=== PATIENT | male | born 2000 | race Caucasian/White ===

== ENCOUNTER 2020-02-16 10:46 | Outpatient (CLI) | payer BC | END 2020-02-16 10:47 | disposition home or self-care (01) | LOC: CTENTCT 10:46 | PROVIDERS: ATTEND Otolaryngology Plastic Surgery within the Head & Neck | DX: J34.2 Deviated nasal septum (principal) | CPT/HCPCS: 70486 ==

== ENCOUNTER 2020-04-11 06:51 | Day surgery (SDC) | payer BC ==
[2020-04-10 10:35] VITALS: BMI 22.5
[2020-04-11] MEDS ORDERED: AFRIN NASAL MIST 15 ML BOT ONE ×2 (07:45→07:57)
[2020-04-11] MEDS ORDERED: XYLOCAINE 2%-EPI 1:100,000 20 ML VIAL ONE (07:56)
[2020-04-11] MEDS ORDERED: Bacitracin Zinc Ointment 30 gm TUBE ONE (07:57)
[2020-04-11] MEDS ORDERED: Fentanyl 100 MCG/2 ML VIAL ONE (08:10)
[2020-04-11] MEDS ORDERED: Meperidine HCl/PF 25 MG/ML VIAL ONE (08:10)
[2020-04-11] MEDS ORDERED: Famotidine/PF 20 mg/2ml Vial ONE (08:10)
[2020-04-11] MEDS ORDERED: Metoclopramide HCl 10 MG/2 ML VIAL ONE (09:22)
[2020-04-11] MEDS ORDERED: Ondansetron PF 4 MG/2 ML Vial ONE (09:22)
[2020-04-11] MEDS ORDERED: Succinylcholine 200 MG/10 ml SYRINGE FS ONE (09:22)
[2020-04-11] MEDS ORDERED: PROPOFOL 200 MG/20 ML VIAL ONE (09:22)
[2020-04-11] MEDS ORDERED: Lidocaine 1% PF 5 ML VIAL ONE (09:22)
[2020-04-11] MEDS ORDERED: Dexamethasone 20 MG/5 ML VIAL ONE (09:22)
[2020-04-11] MEDS ORDERED: Hydrocodone-Acetamin 15 ML UDCUP ONE (10:17)
--- NOTE | 2020-04-12 12:03 | OP ---
DATE OF PROCEDURE: 04/11/2020 PREOPERATIVE DIAGNOSES: 1. Chronic rhinosinusitis. 2. Nasal polyposis. 3. Nasal septal deviation. 4. Bilateral inferior turbinate hypertrophy. 5. Nasal obstruction. POSTOPERATIVE DIAGNOSES: 1. Chronic rhinosinusitis. 2. Nasal polyposis. 3. Nasal septal deviation. 4. Bilateral inferior turbinate hypertrophy. 5. Nasal obstruction. PROCEDURE PERFORMED: 1. Bilateral endoscopic sinus surgery, total ethmoidectomies with frontal sinus exploration and removal of tissue, bilateral. 2. Bilateral endoscopic sinus surgery, maxillary antrostomies. 3. Bilateral endoscopic sinus surgery, sphenoidotomies. 4. Nasal septoplasty. 5. Bilateral inferior turbinate submucosal resection. ESTIMATED BLOOD LOSS: 50 mL. COMPLICATIONS: None. ANESTHESIA: GETA. PROCEDURE IN DETAIL: Patient was taken to the operating room and placed supine on the table. General endotracheal anesthesia was obtained by the anesthesia staff. Then 1% lidocaine with 1:100,000 epinephrine was injected into the nasal septum as well as the inferior turbinates. The patient was prepped and draped in standard surgical fashion. The Afrin pledgets were then removed. A [place] incision was made on the left nasal septum. Submucoperichondrial dissection was performed bilaterally of the deviated portions of the septum, which included the maxillary crest and the crest deviation, as well as the mid portion of the septum. Cartilage and bony deviation was removed, leaving a generous caudal and dorsal strut. Any straight pieces of cartilage were then placed within the cartilage press, pressed, straightened, and then placed between the mucoperichondrial flaps, which were then closed using a 4-0 gut stitch. The inferior turbinates were then punctured with the submucosal Coblation machine, and 3 separate coblations were delivered to the anterior inferior portion of the inferior turbinates. Following this, the nasal cavity was irrigated. All debris was removed. An orogastric tube was placed. Gastric contents and Alcar[place] splints were then placed in the nasal cavity and sutured with a 3-0 silk stitch. Following this, a 0-degree microdebrider was advanced into the middle meatus. The middle turbinates were gently medialized using a [place] elevator bilaterally. Following this, the uncinate process was visualized and was anteriorly fractured using a ball-ended probe bilaterally. The uncinate process was then removed using the 0-degree microdebrider and a 40-degree microdebrider and up-biting [place]akesley forceps bilaterally. Following this, the natural maxillary sinus ostia was palpated and identified using a ball-ended probe bilaterally. The maxillary sinus ostia were then widened using a 40-degree microdebrider blade and straight [place]akes[place] forceps bilaterally. Following this, the ethmoidal bulla was identified and was punctured on its medial and inferior aspect using the 0-degree microdebrider bilaterally. Following this, the ethmoidal bulla was removed along with the anterior ethmoidal cells using the 40-degree microdebrider and a 0-degree microdebrider blade bilaterally. Following this, the grand lamella was identified and was punctured into the posterior ethmoidal cells bilaterally. Keeping the cribriform plate in view, the ethmoidal cells were opened from a posterior to anterior direction using a 0-degree microdebrider, 40-degree microdebrider and the up-biting [place] forceps bilaterally. Following this, the approach to the sphenoid sinus was taken through the previous ethmoidectomies, where the anterior wall of the sphenoid sinus was identified. The 0-degree microdebrider was used to puncture the anterior wall of the sphenoid sinus and create a sphenoidotomy bilaterally. The sphenoidotomy was widened in a medial and inferior direction using the 0-degree microdebrider bilaterally. Following this, a 45-degree endoscope was used to identify the frontal sinus ostia and frontal recess area. There were nasal polyps obstructing this area along with purulent debris. This was removed using the up-biting Blakesley forceps and a 40-degree microdebrider blade. The frontal sinus ostia were punctured and widened using a 40-degree microdebrider bilaterally and polypoid tissue was removed from the floor the frontal sinus bilaterally. Following this, the nasal cavity was irrigated. Nasal pore packing was placed into the middle meatus. Alcaraz splints were placed and secured. The patient tolerated the procedure well. Job ID: [id number]
== END 2020-04-11 11:00 | disposition home or self-care (01) ==
LOC: SDC 06:51
PROVIDERS: ATTEND Otolaryngology Plastic Surgery within the Head & Neck
PROC: 09BT8ZZ Excision of Left Frontal Sinus, Via Natural or Artificial Opening Endoscopic (ICD-10-PCS; principal; 2020-04-11)
PROC: 09TV8ZZ Resection of Left Ethmoid Sinus, Via Natural or Artificial Opening Endoscopic (ICD-10-PCS; principal; 2020-04-11)
PROC: 09TL0ZZ Resection of Nasal Turbinate, Open Approach (ICD-10-PCS; principal; 2020-04-11)
PROC: 099W8ZZ Drainage of Right Sphenoid Sinus, Via Natural or Artificial Opening Endoscopic (ICD-10-PCS; principal; 2020-04-11)
PROC: 09BS8ZZ Excision of Right Frontal Sinus, Via Natural or Artificial Opening Endoscopic (ICD-10-PCS; principal; 2020-04-11)
PROC: 099R8ZZ Drainage of Left Maxillary Sinus, Via Natural or Artificial Opening Endoscopic (ICD-10-PCS; principal; 2020-04-11)
PROC: 099Q8ZZ Drainage of Right Maxillary Sinus, Via Natural or Artificial Opening Endoscopic (ICD-10-PCS; principal; 2020-04-11)
PROC: 099X8ZZ Drainage of Left Sphenoid Sinus, Via Natural or Artificial Opening Endoscopic (ICD-10-PCS; principal; 2020-04-11)
PROC: 09TU8ZZ Resection of Right Ethmoid Sinus, Via Natural or Artificial Opening Endoscopic (ICD-10-PCS; principal; 2020-04-11)
PROC: 09BM0ZZ Excision of Nasal Septum, Open Approach (ICD-10-PCS; principal; 2020-04-11)
DX: J32.9 Chronic sinusitis, unspecified (principal); J33.9 Nasal polyp, unspecified; J34.2 Deviated nasal septum; J34.3 Hypertrophy of nasal turbinates; J34.89 Other specified disorders of nose and nasal sinuses; J30.9 Allergic rhinitis, unspecified; Z87.891 Personal history of nicotine dependence
CPT/HCPCS: J1100; J2175; J2405; J2704; J2765; J3010; S0028